=== PATIENT | female | born 1985 ===

== ENCOUNTER 2016-07-14 11:08 | Emergency (ER) | payer OTHER ==
[2016-07-14 11:23] VITALS: RESP 18; TEMP 98.3; O2SAT 98
[2016-07-14 11:35] VITALS: BMI 33.2
--- NOTE | 2016-07-14 11:49 | ED PDOC ---
Arrival/HPI - General Chief Complaint: Chest Pain Time Seen by Provider: 07/14/16 11:11 Historian: Patient - History of Present Illness Narrative History of Present Illness (Text): 07/14/16 11:40 A 31 year old female, whose past medical history includes Lupus, asthma and a AV block, presents to the emergency department complaining of intermittent chest pain for some time now. Patient reports every morning she wakes up with chest pain, which usually goes away. Today pain did not go away so she decided to come in and get it evaluated. Pain is described as a sharp pressure sensation that it localized to the mid sternum. She mentions in the last week she had two syncopal episodes, one yesterday and one "last week". pt states lasted "a few seconds" Patient denies any fever, shortness of breath, cough, or any other complaints at this time. PMD: Dr. Haley 07/14/16 14:06 Time/Duration: > week Symptom Onset: Sudden Symptom Course: Other Quality: Pressure, Other (sharp) Activities at Onset: Rest Context: Home Past Medical History - Provider Review Nursing Documentation Reviewed: Yes - Cardiac Hx Cardiac Disorders: No - Pulmonary Hx Respiratory Disorders: Yes Hx Asthma: Yes - Neurological Hx Neurological Disorder: No - HEENT Hx HEENT Disorder: No - Renal Hx Renal Disorder: No - Endocrine/Metabolic Hx Endocrine Disorders: No - Hematological/Oncological Hx Blood Disorders: No - Integumentary Hx Dermatological Disorder: No - Musculoskeletal/Rheumatological Hx Musculoskeletal Disorders: No - Gastrointestinal Hx Gastrointestinal Disorders: No - Genitourinary/Gynecological Hx Genitourinary Disorders: No - Psychiatric Hx Psychophysiologic Disorder: Yes Hx Depression: Yes Hx Substance Use: No - Surgical History Hx Breast Biopsy: Yes (LEFT) Hx Dilation and Curettage: Yes Other/Comment: REMOVAL IUD TEETHEXTRACTION LAPAROSCOPY - Anesthesia Hx Anesthesia: Yes Hx Anesthesia Reactions: No Family/Social History - Physician Review Nursing Documentation Reviewed: Yes Family/Social History: Unknown Family HX Smoking Status: Current Some Days Smoker Hx Alcohol Use: No Hx Substance Use: No Allergies/Home Meds Allergies/Adverse Reactions: Allergies ketorolac tromethamine [From Toradol] Allergy (Verified 07/14/16 11:33) SWELLING oxycodone Allergy (Verified 07/14/16 11:33) ANAPHYLAXIS Home Medications: Home Meds Medication Instructions Recorded Confirmed No Known Home Med 04/10/17 04/10/17 Review of Systems - Physician Review All systems were reviewed & negative as marked: Yes - Review of Systems Constitutional: absent: Fevers Respiratory: absent: SOB, Cough Cardiovascular: Chest Pain, Syncope Physical Exam Vital Signs Reviewed: Yes Vital Signs Temp Pulse Resp BP Pulse Ox 07/14/16 13:45 62 18 132/69 98 07/14/16 12:25 64 18 134/75 98 07/14/16 11:23 98.3 F 66 18 136/78 98 Temperature: Afebrile Blood Pressure: Normal Pulse: Regular Respiratory Rate: Normal Appearance: Positive for: Well-Appearing, Non-Toxic, Comfortable Pain Distress: None Mental Status: Positive for: Alert and Oriented X 3 - Systems Exam Head: Present: Atraumatic, Normocephalic Pupils: Present: PERRL Extroacular Muscles: Present: EOMI Conjunctiva: Present: Normal Mouth: Present: Moist Mucous Membranes Neck: Present: Normal Range of Motion Respiratory/Chest: Present: Clear to Auscultation, Good Air Exchange. No: Respiratory Distress, Accessory Muscle Use Cardiovascular: Present: Regular Rate and Rhythm, Normal S1, S2. No: Murmurs Abdomen: Present: Normal Bowel Sounds. No: Tenderness, Distention, Peritoneal Signs Back: Present: Normal Inspection Upper Extremity: Present: Normal Inspection. No: Cyanosis, Edema Lower Extremity: Present: Normal Inspection. No: Edema Neurological: Present: GCS=15, CN II-XII Intact, Speech Normal Skin: Present: Warm, Dry, Normal Color. No: Rashes Psychiatric: Present: Alert, Oriented x 3, Normal Insight, Normal Concentration Medical Decision Making ED Course and Treatment: 07/14/16 11:40 Impression: A 31 year old female with intermittent chest pain. Differential Diagnosis include but are not limited to: cardiac vs pe vs intracranial pathology leading to syncope Plan: -- EKG -- Chest X-ray -- Labs -- Urinalysis -- Reassess and disposition Prior Visits: Notes and results from previous visits were reviewed. The patient last presented to the emergency department on 04/11/16 for evaluation of a cough. Progress Notes: EKG: Ordered, reviewed, and independently interpreted the EKG. Rate : 81 BPM Rhythm : NSR Interpretation : No ST-segment elevations or depressions, no T-wave inversions, normal intervals. 04/10/17 13:15 Chest X-ray: Creator : Edgar Shahid MD COMPARISON: No prior. FINDINGS: LUNGS: No active pulmonary disease. PLEURA: No significant pleural effusion identified, no pneumothorax apparent. CARDIOVASCULAR: Normal. OSSEOUS STRUCTURES: No significant abnormalities. VISUALIZED UPPER ABDOMEN: Normal. OTHER FINDINGS: None. IMPRESSION: No active disease. 07/14/16 13:28 07/14/16 14:[address] neg[address] pt noted h/o of "av block". no av block noted on ekg. advised pt to be observed in hospital as pt with possible cardiac syncope as etiology. pt declines states she prefers to go home. head ct neg. neuro intact. labs unremarkable. cxr neg. pt offered admission twice, but declines, prefers to go home, and f/u outpt. - Lab Interpretations Lab Results: 07/14/16 12:10 07/14/16 12:40 Lab Results 07/14/16 12:40: Sodium 141, Potassium 4.0, Chloride 104, Carbon Dioxide 27, Anion Gap 14, BUN 9, Creatinine 0.6, Est GFR ( Amer) > 60, Est GFR (Non- Af Amer) > 60, Random Glucose 81, Calcium 8.8, Magnesium 2.1, Total Bilirubin 0.6, AST 25, ALT 51, Alkaline Phosphatase 66, Lactate Dehydrogenase 341, Total Creatine Kinase 57, Troponin I < 0.01, Total Protein 7.5, Albumin 3.9, Globulin 3.6, Albumin/Globulin Ratio 1.1, Lipase 69 07/14/16 12:10: WBC 7.4, RBC 5.29, Hgb 13.3, Hct 41.0, MCV 77.5 L, MCH 25.1, MCHC 32.4, RDW 15.2 H, Plt Count 365, MPV 9.3, Gran % 49.2 L, Lymph % (Auto) 44.5 H, [place] % (Auto) 4.6, Eos % (Auto) 1.2 L, Baso % (Auto) 0.5, Gran # 3.62, Lymph # 3.3, [place] # 0.3, Eos # 0.1, Baso # 0.04, PT 11.3, INR 1.05, APTT 26.6, D -Dimer, Quantitative 0.19 07/14/16 11:45: Urine Color Yellow, Urine Appearance Clear, Urine pH 6.0, Ur Specific [place] 1.025, Urine Protein Trace H, Urine Glucose (UA) Negative, Urine Ketones Negative, Urine Blood Trace-intact H, Urine Nitrate Negative, Urine Bilirubin Negative, Urine Urobilinogen 0.2, Ur Leukocyte Esterase Negative , Urine RBC 0 - 2, Urine WBC 0 - 2, Ur Epithelial Cells 0 - 2, Urine Bacteria Trace, Urine HCG, Qual Negative I have reviewed the lab results: Yes - RAD Interpretation Radiology Orders: 07/14/16 11:43 CHEST PORTABLE [RAD] Stat 07/14/16 13:15 HEAD W/O CONTRAST [CT] Stat - Medication Orders Current Medication Orders: Discontinued Medications Diphenhydramine HCl (Benadryl) 25 mg IVP STAT STA Stop: 07/14/16 13:16 Last Admin: 07/14/16 13:39 Dose: 25 MG IVP Administration Document 07/14/16 13:39 (Rec: 07/14/16 13:39 [id number]) Charges for Administration # of IVP Administrations 1 Metoclopramide HCl (Reglan) 10 mg IVP STAT STA Stop: 07/14/16 13:16 Last Admin: 07/14/16 13:39 Dose: 10 MG IVP Administration Document 07/14/16 13:39 (Rec: 07/14/16 13:39 [id number]) Charges for Administration # of IVP Administrations 1 Pantoprazole Sodium (Protonix Inj) 40 mg IVP STAT STA Stop: 07/14/16 11:53 Last Admin: 07/14/16 13:10 Dose: 40 MG IVP Administration Document 07/14/16 13:10 (Rec: 07/14/16 13:10 [id number]) Charges for Administration # of IVP Administrations 1 - Scribe Statement The provider has reviewed the documentation as recorded by the Lunaibharjeet Vogt Provider Scribe Attestation: All medical record entries made by the Scribe were at my direction and personally dictated by me. I have reviewed the chart and agree that the record accurately reflects my personal performance of the history, physical exam, medical decision making, and the department course for this patient. I have also personally directed, reviewed, and agree with the discharge instructions and disposition. Disposition/Present on Arrival - Present on Arrival Any Indicators Present on Arrival: No History of DVT/PE: No History of Uncontrolled Diabetes: No Urinary Catheter: No History of Decub. Ulcer: No History Surgical Site Infection Following: None - Disposition Have Diagnosis and Disposition been Completed?: Yes Diagnosis: Syncope Disposition: HOME/ ROUTINE Disposition Time: 14:08 Patient Problems: Current Active Problems Problem Status Diagnosed Syncope Acute Condition: STABLE Discharge Instructions (ExitCare): Syncope (ED), Acute Headache (ED) Additional Instructions: please follow up with your doctor. return to er with worsening symptoms or concerns. please see specialist. you are declining observation in hospital. you are able to return at any point with any concern. Referrals: Suzanne Blount, [Primary Care Provider] - Follow up with primary Rich Hoffman MD [Staff Provider] - Follow up with primary Aureliano Squires MD [Staff Provider] - Follow up with primary
[2016-07-14 11:59] LABS: URINE BILIRUBIN NEGATIVE (NEGATIVE); URINE BLOOD TRACE-INTACT (NEGATIVE); URINE GLUCOSE (UA) NEGATIVE (NEGATIVE); URINE KETONE NEGATIVE (NEGATIVE); URINE LEUKOCYTE ESTERASE NEGATIVE Leu/uL (NEGATIVE); URINE PROTEIN TRACE mg/dL (<30 mg/dL); URINE UROBILINOGEN 0.2 E.U./dL (<1 E.U./dL)
[2016-07-14 12:09] LABS: URINE APPEARANCE CLEAR (CLEAR); URINE COLOR YELLOW (YELLOW)
[2016-07-14 12:11] LABS: URINE BACTERIA TRACE (NEG); URINE EPITHELIAL CELLS 0 - 2 /hpf (0-5); URINE RBC 0 - 2 /hpf (0-2); URINE WBC 0 - 2 /hpf (0-6)
[2016-07-14 12:24] LABS: ADD MANUAL DIFF? NO
[2016-07-14 12:30] LABS: BASO # 0.04 K/mm3 (0.0-2.0); BASO % 0.5 % (0.0-3.0); EOS # 0.1 (0.0-0.7); EOS % 1.2 % (1.5-5.0); GRAN # 3.62 (1.4-6.5); GRAN % 49.2 % (50.0-68.0); LYMPH # 3.3 (1.2-3.4); LYMPH % 44.5 % (22.0-35.0); MEAN CELL VOLUME 77.5 fL (80.0-105.0); MEAN CORPUSCULAR HEMOGLOBIN 25.1 pg (25.0-35.0); MEAN CORPUSCULAR HGB CONC 32.4 g/dl (31.0-37.0); MEAN PLATELET VOLUME 9.3 fl (7.0-11.0); MONO # 0.3 (0.1-0.6); MONO % 4.6 % (1.0-6.0); PLATELET COUNT 365 10^3/uL (120.0-450.0); RED CELL DISTRIBUTION WIDTH 15.2 % (11.5-14.5); WHITE BLOOD COUNT 7.4 10^3/ul (4.5-11.0)
[2016-07-14 12:45] LABS: D DIMER 0.19 mg/L FEU (0-0.50); INR 1.05 (0.93-1.08); PARTIAL THROMBOPLASTIN TIME 26.6 Seconds (23.7-30.8)
[2016-07-14 12:58] LABS: ALB/GLOB RATIO 1.1 (1.1-1.8); ALKALINE PHOSPHATASE 66 U/L (38-133); ALT/SGPT 51 U/L (7-56); AST/SGOT 25 U/L (15-39); BILIRUBIN,TOTAL 0.6 mg/dL (0.2-1.3); BLOOD UREA NITROGEN 9 mg/dL (7-21); CALCIUM 8.8 mg/dL (8.4-10.5); CARBON DIOXIDE 27 mmol/L (21-33); CHLORIDE 104 mmol/L (98-107); GFR AFRICAN-AMERICAN > 60; GLUCOSE,RANDOM 81 mg/dL (70-110); LIPASE 69 U/L (23-300); MAGNESIUM 2.1 mg/dL (1.7-2.2); SODIUM 141 mmol/L (132-148); TOTAL PROTEIN 7.5 g/dL (5.8-8.3)
[2016-07-14 13:11] LABS: TROPONIN I < 0.01 ng/mL
--- NOTE | 2016-07-14 13:12 | RAD ---
HISTORY: cp COMPARISON: No prior. FINDINGS: LUNGS: No active pulmonary disease. PLEURA: No significant pleural effusion identified, no pneumothorax apparent. CARDIOVASCULAR: Normal. OSSEOUS STRUCTURES: No significant abnormalities. VISUALIZED UPPER ABDOMEN: Normal. OTHER FINDINGS: None. IMPRESSION: No active disease.
[2016-07-14] MEDS ORDERED: DiphenhydrAMINE 50 mg/ml Inj IVP STA (13:15)
[2016-07-14 13:45] VITALS: BP 132/69; PULSE 62
--- NOTE | 2016-07-14 14:02 | CARD ---
APPROVED REPORT EKG Measurement Heart [id number] <Conclusion> Normal sinus rhythm NSSTW changes Mildly prolonged QTc.
--- NOTE | 2016-07-14 14:03 | CT ---
PROCEDURE: CT HEAD WITHOUT CONTRAST. HISTORY: torres COMPARISON: None available. TECHNIQUE: Axial computed tomography images were obtained through the head/brain without intravenous contrast. Radiation dose: Total exam DLP = 580 mGy-cm. This CT exam was performed using one or more of the following dose reduction techniques: Automated exposure control, adjustment of the mA and/or kV according to patient size, and/or use of iterative reconstruction technique. FINDINGS: HEMORRHAGE: No intracranial hemorrhage. BRAIN: No mass effect or edema. No atrophy or chronic microvascular ischemic changes. VENTRICLES: Unremarkable. No hydrocephalus. CALVARIUM: Unremarkable. PARANASAL SINUSES: Unremarkable as visualized. No significant inflammatory changes. MASTOID AIR CELLS: Unremarkable as visualized. No inflammatory changes. OTHER FINDINGS: None. IMPRESSION: Normal CT of the Head.
== END 2016-07-14 14:30 | disposition home or self-care (01) ==
LOC: ED 11:08
DX: R55 Syncope and collapse (principal); M32.9 Systemic lupus erythematosus, unspecified
CPT/HCPCS: 70450; 71010; 80053; 81001; 82550; 83615; 83690; 83735; 84484; 84703; 85025; 85378; 85610; 85730; 93005; 96374; 96375; 99284; C9113; J1200; J2765

== ENCOUNTER 2017-01-13 17:56 | Emergency (ER) | payer OTHER ==
[2017-01-13 18:03] VITALS: BMI 30.4
[2017-01-13 18:09] VITALS: BP 118/74; PULSE 74; RESP 18; TEMP 98.4; O2SAT 98
[2017-01-13] MEDS ORDERED: Amoxicillin-Clav 875-125 mg Tab PO STA (19:06)
--- NOTE | 2017-01-13 19:11 | ED PDOC ---
Arrival/HPI - General Chief Complaint: Abnormal Skin Integrity Time Seen by Provider: 01/13/17 18:46 Historian: Patient - History of Present Illness Narrative History of Present Illness (Text): 01/13/17 18:47 This 31-year-old female with a past medical history of asthma and lupus, presents to the emergency department complaining of left-sided neck rash 4 months. Patient stated she has seen 2 different dermatologists for the same rash. She stated no diagnosis has been found yet. Patient noted rash is painful within the last week. Patient noted a small lymph node on the scalp near rash. Patient denies shortness of breath, wheezing, sore throat, sick contacts, recent travel, dizziness, or abnormal gait. Time/Duration: Other (4 months) Context: Home Past Medical History - Provider Review Nursing Documentation Reviewed: Yes - Infectious Disease Hx of Infectious Diseases: None - Cardiac Hx Cardiac Disorders: No - Pulmonary Hx Respiratory Disorders: Yes Hx Asthma: Yes - Neurological Hx Neurological Disorder: No - HEENT Hx HEENT Disorder: No - Renal Hx Renal Disorder: No - Endocrine/Metabolic Hx Endocrine Disorders: No - Hematological/Oncological Other/Comment: Lupus - Integumentary Hx Dermatological Disorder: No - Musculoskeletal/Rheumatological Hx Musculoskeletal Disorders: No - Gastrointestinal Hx Gastrointestinal Disorders: No - Genitourinary/Gynecological Hx Genitourinary Disorders: No - Psychiatric Hx Psychophysiologic Disorder: Yes Hx Depression: Yes Hx Substance Use: No - Surgical History Hx Breast Biopsy: Yes (LEFT) Hx Dilation and Curettage: Yes Other/Comment: REMOVAL IUD TEETHEXTRACTION LAPAROSCOPY - Anesthesia Hx Anesthesia: Yes Hx Anesthesia Reactions: No Family/Social History - Physician Review Nursing Documentation Reviewed: Yes Family/Social History: Other (Noncontributory) Smoking Status: Light Smoker < 10 Cigarettes Daily Hx Alcohol Use: Yes Frequency of alcohol use: Socially Hx Substance Use: No Allergies/Home Meds Allergies/Adverse Reactions: Allergies ketorolac tromethamine [From Toradol] Allergy (Verified 07/14/16 11:33) SWELLING oxycodone Allergy (Verified 07/14/16 11:33) ANAPHYLAXIS Review of Systems - Review of Systems Constitutional: Normal. absent: Fatigue, Weight Change, Fevers, Night Sweats Eyes: Normal ENT: Normal Respiratory: Normal. absent: SOB, Cough Cardiovascular: Normal. absent: Chest Pain, Palpitations Gastrointestinal: Normal. absent: Abdominal Pain, Nausea, Vomiting Genitourinary Female: Normal. absent: Dysuria, Frequency, Hematuria Musculoskeletal: Normal. absent: Arthralgias, Back Pain, Neck Pain, Joint Swelling, Myalgias Skin: Rash, Pruritis (See HPI). absent: Skin Lesions, Laceration, Abscess, Ulcer, Cellulitis Neurological: Normal. absent: Headache, Dizziness, Focal Weakness, Gait Changes , Speech Changes, Facial Droop, Disequilibrium, Seizure Endocrine: Normal Hemo/Lymphatic: Normal Psychiatric: Normal Physical Exam Vital Signs Temp Pulse Resp BP Pulse Ox 01/13/17 18:08 98.4 F 74 18 118/74 98 Temperature: Afebrile Blood Pressure: Normal Pulse: Regular Respiratory Rate: Normal Appearance: Positive for: Well-Appearing, Non-Toxic, Comfortable Pain Distress: None Mental Status: Positive for: Alert and Oriented X 3 - Systems Exam Head: Present: Atraumatic, Normocephalic Pupils: Present: PERRL Extroacular Muscles: Present: EOMI Conjunctiva: Present: Normal Mouth: Present: Moist Mucous Membranes Neck: Present: Normal Range of Motion, Lymphadenopathy (Left posterior occipital scalp reactive lymph node), Trachea Midline. No: Meningeal Signs, MIDLINE TENDERNESS, Paraspinal Tenderness Respiratory/Chest: Present: Clear to Auscultation, Good Air Exchange. No: Respiratory Distress, Accessory Muscle Use Cardiovascular: Present: Regular Rate and Rhythm, Normal S1, S2. No: Murmurs Abdomen: Present: Normal Bowel Sounds. No: Tenderness, Distention, Peritoneal Signs Back: Present: Normal Inspection. No: CVA Tenderness Upper Extremity: Present: Normal Inspection, Normal ROM, NORMAL PULSES, Neurovascularly Intact. No: Cyanosis, Edema Lower Extremity: Present: Normal Inspection, NORMAL PULSES, Normal ROM, Neurovascularly Intact, Capillary Refill < 2 s. No: Edema, CALF TENDERNESS Neurological: Present: GCS=15, CN II-XII Intact, Speech Normal Skin: Present: Warm, Dry, Rashes (Nonspecific left-sided neck rash, mild tenderness on palpation, probably secondary cellulitis. Rash has a plaque appearance, it resembles eczema. ), Normal Color Psychiatric: Present: Alert, Oriented x 3, Normal Insight, Normal Concentration Medical Decision Making ED Course and Treatment: 01/13/17 19:14 Patient presents to the ER complaining of left-sided neck rash 4 month. Patient stated rash has been pruritic. Patient has seen 2 different dermatologists for the same complaint. Patient stated rash is painful within the last week. Solitary lymph node located on her left occipital scalp superior of the rash. Superimposed cellulitis is suspected in the rash. She will be treated with medication to treat the rash and possible tendon infection. Patient will be recommended to follow it up with Dr. Reeves postal carrier. Patient was recommended to use detergent, soap for sensitive skin. I reviewed the risk of taking Prednisone with the patient, including AVN, DM, glaucoma, osteoporosis, liver disease, renal failure. She understood risk, she said she has taken this medication in the past due to a Hx. of asthma, and she is willing to take this medication. Re-evaluation Time: 19:17 Reassessment Condition: Re-examined, Improved Disposition/Present on Arrival - Present on Arrival Any Indicators Present on Arrival: No History of DVT/PE: No History of Uncontrolled Diabetes: No Urinary Catheter: No History of Decub. Ulcer: No History Surgical Site Infection Following: None - Disposition Have Diagnosis and Disposition been Completed?: Yes Diagnosis: Rash and nonspecific skin eruption, Cellulitis Disposition: HOME/ ROUTINE Disposition Time: 19:18 Patient Plan: Discharge Condition: GOOD Discharge Instructions (ExitCare): Cellulitis (ED), Dermatitis (ED) Additional Instructions: Call Dr. Reeves Spray Operator for follow up visit in 1-2 days. Take medication as instructed with food. Anti itching medication could make you feel drowsy, so avoid driving or operating machinery. Avoid eating spicy food, or coffee. Consider using Aquaphor Advanced Therapy Healing Ointment. Drink plenty of water to keep your skin hydrated. Prescriptions: Amoxicillin/Clavulanate [Augmentin 875 MG-125 MG] 1 tab PO BID #14 tab Hydroxyzine Pamoate [Vistaril] 25 mg PO Q6H PRN #30 capsule PRN Reason: Itching / Pruritus Prednisone [Deltasone] 3 tab PO DAILY #12 tablet Referrals: Oleksandr Reeves MD [Staff Provider] - Follow up with primary
== END 2017-01-13 19:37 | disposition home or self-care (01) ==
LOC: ED 17:56
DX: R21 Rash and other nonspecific skin eruption (principal); L03.221 Cellulitis of neck
CPT/HCPCS: 81025; 99284; Q0177